=== PATIENT | male | born 1965 | race Caucasian/White ===

== ENCOUNTER 2017-09-28 05:41 | Day surgery (SDC) | payer OTHER ==
--- NOTE | 2017-09-27 17:54 | Pre-Procedure Note/Attestation ---
Pre-Procedure Note/Attestation Complete Prior to Procedure Planned Procedure: left Procedure Narrative: 1. Excision left ear canal skin tumor with frozen section. 2. Reconstruction with local graft-skin and or cartilage. 3. Septoplasty 4. Submucous resection right inferior turbinate 5. Submucous resection left inferior turbinate. Indications for Procedure Pre-Operative Diagnosis: 1. 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 Was done with frozen section a few weeks ago, frozen section was clear, permanent sections were not. This requires removing more tissue. 2. Reconstruction with skin and cartilage as indicated by defect size. 3. Nasal septal deviation 4.Hypertrophied right and left inferior turbinates. Attestation I attest that I discussed the nature of the procedure; its benefits; risks and complications; and alternatives (and the risks and benefits of such alternatives ), prior to the procedure, with the patient (or the patient's legal factory representative). I attest that, if there was a reasonable possibility of needing a blood transfusion, the patient (or the patient's legal factory representative) was given the [place] Department [employer] Services standardized written summary, pursuant to the [employer] Blood Safety Act ([place] Health and Safety Code # 1645, as amended). I attest that I re-evaluated the patient just prior to the surgery and that there has been no change in the patient's H&P, unchanged from 3 weeks ago. EMIL GONZALEZ Sep 27, 2017 17:54
--- NOTE | 2017-09-27 17:55 | Brief Operative Note ---
Immediate Post Operative Note Operative Note Chief Complaint: 1. Skin cancer left ear and nasal airway obstruction Pre-op Diagnosis: 1. 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 Was done with frozen section a few weeks ago, frozen section was clear, permanent sections were not. This requires removing more tissue. 2. Reconstruction with skin and cartilage as indicated by defect size. Procedure: 1. Excision left ear canal skin tumor with frozen section. 2. Reconstruction with local graft-skin and or cartilage. Post-op Diagnosis: After 2 frozen sections, still positive cancer on frozen section. Pt will need to have mastoid, ear canal and auricle removal. He is aware of this. We had discussed at his initial visit and tried to see if could be cleared while saving auricle. This will not be possible. Post-op Diagnosis: same as pre-op Surgeon: Emil Gonzalez Front Desk Assistant: none Additional Surgeons: none Anesthesiologist: Anesthesia: MAC Specimen: yes - 2 sets of frozen sections right auricle Complications: none Condition: stable Fluids: D5LR 500cc Estimated Blood Loss: volume - 25 cc Drains: none Packing: none Implant(s) used?: No EMIL GONZALEZ Sep 27, 2017 17:55
--- NOTE | 2017-09-27 17:59 | Discharge Instructions ---
Discharge Instructions Discharge Instructions Follow up with: Dr. Gonzalez 09/30/17 11:45 Diet: regular Resume Normal Activity?: No Activity: light activity Pneumonia Vaccine: pt refused vaccine Influenza Vaccine (Dec to May): pt refused vaccine Follow Up Orders Pt has printed post op instructions as well as his post op meds already. Return to Work/School on: Oct 11, 2017 For Surgical Patients Dressing Care: keep dry and clean For Congestive Heart Failure Reminder Report to your physician any weight gain of 5 pounds or more in one week. EMIL GONZALEZ Sep 27, 2017 17:59
[2017-09-28] VITALS (8 sets, daily range): BP systolic 120–149; BP diastolic 57–88
[~2017-09-28] VITALS: Ht 180.3 cm; Wt 104.3 kg
[~2017-09-28 05:41] MED LIST: Dexamethasone 4mg/ml vial IVP ONE; NKM; ceFAZolin sod 1 GM in NS 55 ML IV ONE
[2017-09-28] MEDS ORDERED: Cocaine HCl 4% 4ml vial TOPIC ONE (06:14)
[2017-09-28] MEDS ORDERED: Lidocaine 1% 10mg/ml/EPI 0.01mg/ml 50ml INJ ONE (06:15)
[2017-09-28] MEDS ORDERED: Bupivacaine 0.5% Inj 30 ml vial INJ ONE (06:15)
[2017-09-28] MEDS ORDERED: EPINEPHrine 1mg/1ml Amp ONE (06:15)
[2017-09-28] MEDS ORDERED: Propofol 200mg/20ml IV ONE ×2 (06:53→08:48)
[2017-09-28] MEDS ORDERED: Lidocaine 1% MPF 10mg/ml 5ml ONE ×2 (06:53→08:48)
[2017-09-28] MEDS ORDERED: fentaNYL 100 mcg/2 mL IV ONE (06:54)
[2017-09-28] MEDS ORDERED: Midazolam 2mg/2ml Inj ONE (06:54)
[2017-09-28] MEDS ORDERED: Zemuron 50mg/5ml Inj IV ONE (07:04)
--- NOTE | 2017-09-28 07:20 | Anethesia Preoperative Eval ---
Anesthesia Pre-op PMH/ROS General Date of Evaluation: Sep 28, 2017 Time of Evaluation: 07:00 Anesthesiologist: ASA Score: ASA 2 Mallampati Score Class I : Soft palate, uvula, fauces, pillars visible Class II: Soft palate, uvula, fauces visible Class III: Soft palate, base of uvula visible Class IV: Only hard plate visible Mallampati Classification: Class II Surgeon: nish Diagnosis: left ear tumor Surgical Procedure: excision left ear tumor w/ frozen section. reconstruction w / local skin gra Anesthesia History: none Allergies: Coded Allergies: No Known Allergies (Unverified , 09/07/17) Medications: see eMAR Past Medical History Cardiovascular: Denies: HTN, CAD, [place], valve dz, arrhythmia, other Pulmonary: Denies: asthma, COPD, RADHA, other Gastrointestinal/Genitourinary: Denies: GERD, CRI, ESRD, other Neurologic/Psychiatric: Denies: dementia, CVA, depression/anxiety, TIA, other Endocrine: Denies: DM, hypothyroidism, steroids, other HEENT: Denies: cataract (L), cataract (R), glaucoma, TORRES MARTINEZ (L), TORRES MARTINEZ (R), other Hematology/Immune: Denies: anemia, DVT, bleeding disorder, other Musculoskeletal/Integumentary: Denies: OA, RA, DJD, DDD, edema, other Anesthesia Pre-op Phys. Exam Physician Exam Last Vital Signs Date Time Temp Pulse Resp B/P (MAP) Pulse Ox O2 Delivery O2 Flow Rate FiO2 09/28/17 06:21 97.0 87 18 135/57 95 Room Air 97.0 Constitutional: NAD Cardiovascular: RRR Respiratory: CTA Gastrointestinal: S/NT/ND Airway Exam Mallampati Score: Class III MO: full ROM: full Teeth: intact Dentures: no upper, no lower Anesthesia Pre-op A/P Risk Assessment & Plan Assessment: asa 2 Plan: local with sedation Status Change Before Surgery: No Pre-Antibiotics Drug: ancef 2 grams Given Within 1 Hr of Incision: Yes Time Given: 08:05 Jael Mckeon M.D. Sep 28, 2017 07:20
[2017-09-28] MEDS ORDERED: LR 1000ml ONE (07:35)
[2017-09-28] MEDS ORDERED: LR 1000ml 1,000 ML IVLG SCH (08:36)
[2017-09-28] MEDS ORDERED: DiphenhydrAMINE 50mg/ml Inj IVP PRN (08:45)
[2017-09-28] MEDS ORDERED: fentaNYL 100 mcg/2 mL IV PRN (08:45)
[2017-09-28] MEDS ORDERED: Labetalol 5mg/ml 20ml vial IV PRN (08:45)
[2017-09-28] MEDS ORDERED: Hydromorphone 0.5mg/0.5ml inj IVP PRN (08:45)
[2017-09-28] MEDS ORDERED: Bacitracin Oint 15gm Tube TOPIC ONE (09:43)
--- NOTE | 2017-09-28 10:17 | Immediate Post-Op Evaluation ---
Immediate Post-Op Evalulation Immediate Post-Op Evalulation Procedure: excision left ear tumor w/ frozen section Date of Evaluation: Sep 28, 2017 Time of Evaluation: 10:05 IV Fluids: LR 600ml Blood Products: 0 Estimated Blood Loss: 20ml Urinary Output: 0 Blood Pressure Systolic: 138 Blood Pressure Diastolic: 85 Pulse Rate: 78 Respiratory Rate: 16 O2 Sat by Pulse Oximetry: 97 Temperature (Fahrenheit): 97.5 Pain Score (1-10): 0 Nausea: No Vomiting: No Complications none Patient Status: awake, patent, none Hydration Status: adequate Drug: ancef 2 grams Given Within 1 Hr of Incision: Yes Time Given: 08:00 Jael Mckeon M.D. Sep 28, 2017 10:17
[2017-09-28] MEDS ORDERED: Norco 5mg/325mg tab ORAL PRN (10:30)
[2017-09-28] MEDS ORDERED: Metoclopramide 10mg/2ml Inj IVP PRN (10:30)
--- NOTE | 2017-09-28 11:42 | 48 Hour Post Anesthesia Eval ---
Post Anesthesia Evaluation Procedure: excision left ear tumor w/ frozen section Date of Evaluation: Sep 28, 2017 Time of Evaluation: 10:25 Blood Pressure Systolic: 149 0: 88 Pulse Rate: 79 Respiratory Rate: 16 Temperature (Fahrenheit): 97.2 O2 Sat by Pulse Oximetry: 94 Airway: patent Nausea: No Vomiting: No Pain Intensity: 0 Hydration Status: adequate Mental Status/LOC: patient returned to baseline Post-Anesthesia Complications: none Follow-up care needed: ready to discharge Jael Mckeon M.D. Sep 28, 2017 11:42
--- NOTE | 2017-09-28 16:30 | Operative Note - Dictated ---
DATE OF OPERATION: 09/28/2017 SURGEON: Russel Acosta M.D. COMMUNITY SERVICE TECHNICIAN: None. ANESTHESIOLOGIST: Jael Mckeon M.D. ANESTHESIA: IV sedation as well as 10 mL of 1% lidocaine with 1:100,000 epinephrine and 9 mL 0.5% bupivacaine with 1:200,000 epinephrine. 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 Frozen section clear, came back positive on permanent, came back for additional excision. The patient is aware that if the margins are positive deep into the cartilage close to his external auditory canal that surgery will be stopped and that he will have to go to have his whole ear removed as well as possibly his mastoid and part of his external auditory canal. This would not be done today at the hospital. PREOPERATIVE DIAGNOSIS: Squamous cell carcinoma, left auricle. POSTOPERATIVE DIAGNOSIS: Squamous cell carcinoma, left auricle. FINDINGS: Positive margins on 2 sets, frozen sections including deep. PROCEDURES: 1. Excision of squamous cell carcinoma, left ear with frozen sections x2. 2. Postauricular graft to cover the excised area, which will require further surgery elsewhere. TECHNIQUE: The patient was prepped and draped in usual manner. After IV sedation, he was injected with 1% lidocaine and 1:100,000 epinephrine. I then cleaned the ear with Betadine. I then excised approximately a 3 cm area in the yoon. This was sent for frozen section marked . When it came back, deep margins were positive and many of the other margins were positive. I then cut out the cartilage and did a larger epithelial excision. This was sent for frozen section with new deep margins as well. Again, most of these were positive. At this point, I decided to just put a graft over this to help it heal and then we will send him to either [facility] or [facility] to have auricle removed and mastoid. Graft was taken from behind the ear. This was closed after undermining with 4-0 plain suture and 6-0 running horizontal mattress Prolene. Steri-Strips placed across it and Tegaderm. The graft was then placed in the yoon what was left of it. It was sewn into place with a bolster graph, Neosporin on it, and cotton. A 6-0 sutures were used for this. He will see me in my office in 2 days. We will start to break this down and set up his next set of procedures. Sponge and needle count correct. ESTIMATED BLOOD LOSS: 25 mL. COUNTS: None. DRAINS: None. Russel Acosta M.D. DR: CAITLYN JOB#: [id number] CC:
== END 2017-09-28 11:00 | disposition home or self-care (01) ==
LOC: SUR 05:41
DX: C44.219 Basal cell carcinoma of skin of left ear and external auricular canal (principal)
CPT/HCPCS: 11643; 15260; J0171; J0690; J2250; J2704; J3010; J3490; J7120; 94003; 94150